=== PATIENT | female | born 1975 | race Caucasian/White ===

== ENCOUNTER 2017-07-01 10:53 | Emergency (ER) | payer MEDICAID ==
[2017-07-01] MEDS: KETOROLAC 30 MG INJ IM (11:58)
== END 2017-07-01 12:39 | disposition home or self-care (01) ==
LOC: E/R 10:53
DX: M54.12 Radiculopathy, cervical region (principal); I10 Essential (primary) hypertension
CPT/HCPCS: 71045; 81025; 93005; 96372; 99284-25

== ENCOUNTER 2017-09-07 18:43 | Emergency (ER) | payer MEDICAID ==
[2017-09-07] MEDS: METOCLOPRAMIDE 10 MG INJ IV (20:07)
[2017-09-07] MEDS: DIPHENHYDRAMINE 50 MG INJ IV (20:07)
[2017-09-07] MEDS: SOD CHLORIDE 0.9% 1,000 ML IV (20:08)
== END 2017-09-07 21:15 | disposition home or self-care (01) ==
LOC: E/R 18:43
DX: R51 Headache (principal); I10 Essential (primary) hypertension
CPT/HCPCS: 96374; 96375; 99284-25